=== PATIENT | female | born 1985 | race Caucasian/White ===

== ENCOUNTER → 2021-04-11 | Outpatient (CLI) | payer BC ==
--- NOTE | 2021-04-26 00:39 | SLEEP ---
[address] [address] SLEEP STUDY REPORT Name: THOMAS WRIGHT Room: [facility]#: [id number] Admission: 04/11/21 Attend Phys: Robert Shahid MD Discharge: Date of : 87 Report #: [id number] THIS REPORT FOR: cc: Akil Renee Vincent R. DO Pervez, Adeel MD ~ DATE OF STUDY: 04/11/2021 HOME SLEEP STUDY INTERPRETATION: Total duration of the study is 449 minutes. During this time duration, we recorded multiple sleep related respiratory events. These included 403 obstructive apneas, 74 central apneas, 54 mixed apneas and 13 hypopneas. Overall, apnea-hypopnea index is 72.6. Body position data indicates the patient is lying in the supine position for 361 minutes, the rest of the time the patient was in the right side. There is no obvious positional variation noted and multiple desaturations recorded. O2 saturation is less than 90% for 41 minutes. During the sleep study and as below 85% for 4.3 minutes. Lowest recorded O2 saturation is 79%. Mean heart rate is 72. IMPRESSION: There is very severe obstructive sleep apnea with an apnea-hypopnea index of 72.6 with marked nocturnal hypoxemia as described above. There is no obvious positional variation detected during the sleep study. RECOMMENDATIONS: Considering the severity of this patient's obstructive sleep apnea, I recommend proceeding to in-lab sleep study for positive airway pressure titration rather than the use of a CPAP auto titrated device. This entire sleep study was reviewed by a board certified sleep physician. <ELECTRONICALLY SIGNED> By: Robert Shahid MD 04/26/21 0039 [id number] Shahid MD /nt
== END ==
LOC: M.PUL 13:30
PROVIDERS: ATTEND Internal Medicine Critical Care Medicine
DX: G47.33 Obstructive sleep apnea (adult) (pediatric) (principal); G47.19 Other hypersomnia; E66.01 Morbid (severe) obesity due to excess calories